=== PATIENT | male | born 1985 | race American Indian/Alaskan Native ===

== ENCOUNTER 2020-04-04 17:30 | Emergency (ER) | payer SELFPAY ==
[2020-04-04 17:56] VITALS: BP 132/82
--- NOTE | 2020-04-04 20:50 | Emergency Department Report ---
ED General Adult HPI - General Chief complaint: Skin/Abscess/Foreign Body Stated complaint: KNOTS IN ARM Time Seen by Provider: 04/04/20 20:41 Source: patient Mode of arrival: Ambulatory Limitations: No Limitations - History of Present Illness Initial comments: Patient is a 34-year-old F Nepalese male who is presenting with 1 month of swelling to the bilateral biceps. States he feels the small knots underneath the skin along the veins. Patient states there is some tenderness. He denies any fevers chills cough cold congestion or abscesses in the axilla. - Related Data Previous Rx's Medication Instructions Recorded Last Taken Type Aspirin EC [Ecotrin] 325 mg PO QDAY #7 tablet. 04/04/20 Unknown Rx cephALEXin [Keflex] 500 mg PO Q6HR #20 capsule 04/04/20 Unknown Rx Allergies Allergy/AdvReac Type Severity Reaction Status Date / Time No Known Allergies Allergy Unverified 04/04/20 17:49 ED Review of Systems ROS: Stated complaint: KNOTS IN ARM Other details as noted in HPI Comment: All other systems reviewed and negative ED Past Medical Hx - Past Medical History Previous Medical History?: No - Surgical History Past Surgical History?: No - Social History Smoking Status: Former Smoker Substance Use Type: None - Medications Home Medications: Home Medications Medication Instructions Recorded Confirmed Last Taken Type Aspirin EC [Ecotrin] 325 mg PO QDAY #7 tablet. 04/04/20 Unknown Rx cephALEXin [Keflex] 500 mg PO Q6HR #20 capsule 04/04/20 Unknown Rx ED Physical Exam - General Limitations: No Limitations General appearance: alert, in no apparent distress - Head Head exam: Present: atraumatic, normocephalic - Eye Eye exam: Present: normal appearance - ENT ENT exam: Present: mucous membranes moist - Neck Neck exam: Present: normal inspection - Respiratory Respiratory exam: Present: normal lung sounds bilaterally. Absent: respiratory distress - Cardiovascular Cardiovascular Exam: Present: regular rate, normal rhythm. Absent: systolic murmur, diastolic murmur, rubs, gallop - GI/Abdominal GI/Abdominal exam: Present: soft, normal bowel sounds - Rectal Rectal exam: Present: deferred - Extremities Exam Extremities exam: Present: normal inspection, other (In the bilateral biceps mostly medial the patient has clusters of small nodular lymph node sized lesions underneath the skin. He is a mobile. There are running in a chain. There is no swelling or abscess in the axilla. There is no overlying erythema or induration of the skin.) - Back Exam Back exam: Present: normal inspection - Neurological Exam Neurological exam: Present: alert, oriented X3 - Psychiatric Psychiatric exam: Present: normal affect, normal mood - Skin Skin exam: Present: warm, dry, intact, normal color. Absent: rash ED Course Vital Signs 04/04/20 04/04/20 17:52 17:53 Temperature 98.2 F 98.2 F Pulse Rate 67 64 Respiratory 18 18 Rate Blood Pressure 132/82 132/82 O2 Sat by Pulse 99 100 Oximetry ED Medical Decision Making - Medical Decision Making Differential includes lymphadenopathy versus thrombophlebitis. Because of the widespread nature leaning more towards these being lymph nodes. Patient is to be started on aspirin therapy as well as Keflex and will be given follow with primary care for further management. Critical care attestation.: If time is entered above; I have spent that time in minutes in the direct care of this critically ill patient, excluding procedure time. ED Disposition Clinical Impression: Lymphadenitis Disposition: DC-01 TO HOME OR SELFCARE Is pt being admited?: No Does the pt Need Aspirin: No Condition: Stable Instructions: Lymphangitis, Adult Referrals: BERNABE NGUYEN MD [Staff Physician] - 3-5 Days Time of Disposition: 20:46
== END 2020-04-04 20:58 | disposition home or self-care (01) ==
LOC: ED 17:30
DX: I88.8 Other nonspecific lymphadenitis (principal)
CPT/HCPCS: 99282

== ENCOUNTER 2020-04-24 09:55 | Emergency (ER) | payer OTHER ==
[2020-04-24 10:07] VITALS: BP 124/72
--- NOTE | 2020-04-24 12:34 | Emergency Department Report ---
ED Upper Extremity Inj HPI - General Chief Complaint: Extremity Injury, Upper Stated Complaint: RT ARM PAIN Time Seen by Provider: 04/24/20 10:54 Source: patient Mode of arrival: Ambulatory Limitations: No Limitations - History of Present Illness Initial Comments: This is a 34-year-old male nontoxic, well nourished in appearance, no acute signs of distress presents to the ED with c/o of bilateral bicep lumps with right worse then left x1 month. Patient was seen by provider on 04/04/2020 in the ED and was DX with possible lymphadenopathy. Patient denies any injuiries or trauma. Patient denies following up with PCP. Patient denies any numbness, ti ngling, fever, chills, nausea, vomiting, chest pain, shortness of breath, headache, stiff neck. Patient denies any joint swelling or joint redness. Patient denies decreased range of motion. Patient denies any allergies or significant past medical history. MD Complaint: Injury to:: right, arm Other Extremity Injury: Arm: Left, Right Severity scale (0 -10): 8 Improves With: none Worsens With: none Associated Symptoms: denies other symptoms. denies: weakness, numbness, neck pain, suspects foreign body, nausea/vomiting, heard/felt popping sensat - Related Data Previous Rx's Medication Instructions Recorded Last Taken Type Aspirin EC [Ecotrin] 325 mg PO QDAY #7 tablet. 04/04/20 Unknown Rx cephALEXin [Keflex] 500 mg PO Q6HR #20 capsule 04/04/20 Unknown Rx Allergies Allergy/AdvReac Type Severity Reaction Status Date / Time No Known Allergies Allergy Unverified 04/04/20 17:49 ED Review of Systems ROS: Stated complaint: RT ARM PAIN Other details as noted in HPI Constitutional: denies: chills, fever Eyes: denies: eye pain, eye discharge, vision change ENT: denies: ear pain, throat pain Respiratory: denies: cough, shortness of breath, wheezing Cardiovascular: denies: chest pain, palpitations Endocrine: no symptoms reported Gastrointestinal: denies: abdominal pain, nausea, diarrhea Genitourinary: denies: urgency, dysuria Musculoskeletal: denies: back pain, joint swelling, arthralgia Skin: denies: rash, lesions Neurological: denies: headache, weakness, paresthesias Psychiatric: denies: anxiety, depression Hematological/Lymphatic: denies: easy bleeding, easy bruising ED Past Medical Hx - Past Medical History Previous Medical History?: Yes Additional medical history: right arm with knots - Surgical History Past Surgical History?: No - Social History Smoking Status: Never Smoker Substance Use Type: None - Medications Home Medications: Home Medications Medication Instructions Recorded Confirmed Last Taken Type Aspirin EC [Ecotrin] 325 mg PO QDAY #7 tablet.dr 04/04/20 Unknown Rx cephALEXin [Keflex] 500 mg PO Q6HR #20 capsule 04/04/20 Unknown Rx ED Physical Exam - General Limitations: No Limitations General appearance: alert, in no apparent distress - Head Head exam: Present: atraumatic, normocephalic - Eye Eye exam: Present: normal appearance - Neck Neck exam: Present: normal inspection, full ROM - Respiratory Respiratory exam: Present: normal lung sounds bilaterally. Absent: respiratory distress, wheezes, rales, rhonchi, stridor, chest wall tenderness, accessory muscle use, decreased breath sounds, prolonged expiratory - Cardiovascular Cardiovascular Exam: Present: regular rate, normal rhythm, normal heart sounds. Absent: bradycardia, tachycardia, irregular rhythm, systolic murmur, diastolic murmur, rubs, gallop - Extremities Exam Extremities exam: Present: normal inspection, full ROM, normal capillary refill, other (small lumps noted that are mobile with no tenderness to biceps area. Neurovascular within normal limits). Absent: tenderness, joint swelling, calf tenderness - Back Exam Back exam: Present: normal inspection - Neurological Exam Neurological exam: Present: alert, oriented X3, normal gait - Psychiatric Psychiatric exam: Present: normal affect, normal mood - Skin Skin exam: Present: warm, dry, intact, normal color. Absent: rash ED Course Vital Signs 04/24/20 10:04 Temperature 97.9 F Pulse Rate 74 Respiratory 18 Rate Blood Pressure 124/72 O2 Sat by Pulse 97 Oximetry - Reevaluation(s) Reevaluation #1: 04/24/20 12:52 Patient is speaking in full sentences with no signs of distress noted. - Consultations Consultation #1: 04/24/20 14:38 Patient has been consulted with Stacey Najera about patient history, physical exam, and labs and agrees to the discharge plan of care. ED Medical Decision Making - Lab Data Result diagrams: 04/24/20 13:55 04/24/20 13:55 Lab Results 04/24/20 04/24/20 04/24/20 Range/Units 13:55 13:55 14:00 WBC 2.7 L (4.5-11.0) K/mm3 RBC 4.93 (3.65-5.03) M/mm3 Hgb 14.7 (11.8-15.2) gm/dl Hct 43.2 (35.5-45.6) % MCV 88 (84-94) fl MCH 30 (28-32) pg MCHC 34 (32-34) % RDW 13.9 (13.2-15.2) % Plt Count 139 L (140-440) K/mm3 Lymph % (Auto) 47.3 H (13.4-35.0) % Kane % (Auto) 15.8 H (0.0-7.3) % Eos % (Auto) 1.9 (0.0-4.3) % Baso % (Auto) 0.8 (0.0-1.8) % Lymph # (Auto) 1.3 (1.2-5.4) K/mm3 Kane # (Auto) 0.4 (0.0-0.8) K/mm3 Eos # (Auto) 0.1 (0.0-0.4) K/mm3 Baso # (Auto) 0.0 (0.0-0.1) K/mm3 Add Manual Diff Complete Seg Neutrophils % 34.2 L (40.0-70.0) % Seg Neutrophils # 0.9 L (1.8-7.7) K/mm3 Sodium 137 (137-145) mmol/L Potassium 4.6 (3.6-5.0) mmol/L Chloride 103.2 (98-107) mmol/L Carbon Dioxide 30 (22-30) mmol/L Anion Gap 8 mmol/L BUN 15 (9-20) mg/dL Creatinine 1.0 (0.8-1.3) mg/dL Estimated GFR > 60 ml/min BUN/Creatinine Ratio 15 % Glucose 85 (75-100) mg/dL Calcium 9.2 (8.4-10.2) mg/dL Total Bilirubin 0.30 (0.1-1.2) mg/dL AST 30 (5-40) units/L ALT 27 (7-56) units/L Alkaline Phosphatase 73 (35-129) units/L C-Reactive Protein (0.00-1.30) mg/dL Total Protein 6.9 (6.3-8.2) g/dL Albumin 3.8 L (3.9-5) g/dL Albumin/Globulin Ratio 1.2 % Monoscreen Negative (Negative) 04/24/ Range/Units 14:00 WBC (4.5-11.0) K/mm3 RBC (3.65-5.03) M/mm3 Hgb (11.8-15.2) gm/dl Hct (35.5-45.6) % MCV (84-94) fl MCH (28-32) pg MCHC (32-34) % RDW (13.2-15.2) % Plt Count (140-440) K/mm3 Lymph % (Auto) (13.4-35.0) % Kane % (Auto) (0.0-7.3) % Eos % (Auto) (0.0-4.3) % Baso % (Auto) (0.0-1.8) % Lymph # (Auto) (1.2-5.4) K/mm3 Kane # (Auto) (0.0-0.8) K/mm3 Eos # (Auto) (0.0-0.4) K/mm3 Baso # (Auto) (0.0-0.1) K/mm3 Add Manual Diff Seg Neutrophils % (40.0-70.0) % Seg Neutrophils # (1.8-7.7) K/mm3 Sodium (137-145) mmol/L Potassium (3.6-5.0) mmol/L Chloride (98-107) mmol/L Carbon Dioxide (22-30) mmol/L Anion Gap mmol/L BUN (9-20) mg/dL Creatinine (0.8-1.3) mg/dL Estimated GFR ml/min BUN/Creatinine Ratio % Glucose (75-100) mg/dL Calcium (8.4-10.2) mg/dL Total Bilirubin (0.1-1.2) mg/dL AST (5-40) units/L ALT (7-56) units/L Alkaline Phosphatase (35-129) units/L C-Reactive Protein 0.10 (0.00-1.30) mg/dL Total Protein (6.3-8.2) g/dL Albumin (3.9-5) g/dL Albumin/Globulin Ratio % Monoscreen (Negative) - Radiology Data Referring Physician: YASMIN PINTO Patient Name: JESSICA HOWELL Date of : 1985 Sex: Male Report Date: 2020-04-24 Report Status: [place] [address] Vascular Lab Report Signed Patient: JESSICA HOWELL JR MR#: [id number] : 1985 Acct:[id number] Age/Sex: 34 / M ADM Date: 04/24/20 Loc: ED Attending Dr: Ordering Physician: YASMIN PINTO NP Date of Service: 04/24/20 Procedure(s): VL venous duplex UE RT Accession Number(s): [id number] cc: YASMIN PINTO NP DUPLEX DOPPLER UPPER EXTREMITY VENOUS, RIGHT INDICATION / CLINICAL INFORMATION: Right arm pain. Right upper arm lump. TECHNIQUE: Duplex doppler imaging was performed through the veins of the right upper extremity using venous compression and other maneuvers. COMPARISON: None available. FINDINGS: RIGHT INTERNAL JUGULAR VEIN: Negative. RIGHT SUBCLAVIAN VEIN: Negative. RIGHT AXILLARY VEIN: Negative. RIGHT BRACHIAL VEIN: Negative. RIGHT FOREARM VEINS: Negative. RIGHT BASILIC VEIN (SUPERFICIAL): Negative. ADDITIONAL FINDINGS: There are are several small adjacent similar-appearing ovoid hypoechoic nodules in the subcutaneous tissue of the right upper arm at the site of palpable findings. The largest abnormality measures approximately 11 mm. The lesions are solid or complex cystic and demonstrates no internal blood flow on Doppler exam. IMPRESSION: 1. No sonographic evidence for DVT. 2. Several adjacent nonspecific hypoechoic lesions in the subcutaneous tissues of the right upper arm at the site of the palpable abnormality. Signer Name: Jon Bhatti MD Signed: 04/24/2020 1:02 PM Workstation Name: [id number] Transcribed By: RT Dictated By: Jon Bhatti MD Electronically Authenticated By: Jon Bhatti MD Signed Date/Time: 04/24/20 1302 DD/ 1258 TD/TT: - Medical Decision Making 34-year-old male that presents with lymphadenitis. Patient is stable and was examined by me. Patient is notified of the Doppler results with no questions noted by the patient. Patient was instructed to follow-up with a primary care doctor in 3-5 days or if symptoms worsen and continue return to emergency room a s soon as possible. At time of discharge, the patient does not seem toxic or ill in appearance. No acute signs of distress noted. Patient agrees to discharge treatment plan of care. No further questions noted by the patient. Critical care attestation.: If time is entered above; I have spent that time in minutes in the direct care of this critically ill patient, excluding procedure time. ED Disposition Clinical Impression: Lymphadenitis Neutropenia Qualifiers: Neutropenia type: unspecified Qualified Code(s): D70.9 - Neutropenia, unspecified Disposition: DC-01 TO HOME OR SELFCARE Is pt being admited?: No Does the pt Need Aspirin: No Condition: Stable Additional Instructions: Follow-up with a primary care doctor in 3-5 days or if symptoms worsen and continue return to emergency room as soon as possible. Referrals: ADITI KAUFFMAN MD [Primary Care Provider] - 3-5 Days BERNABE NGUYEN MD [Staff Physician] - 3-5 Days [facility] [Provider Group] - 3-5 Days Time of Disposition: 15:09
--- NOTE | 2020-04-24 13:06 | Vascular Lab Report ---
DUPLEX DOPPLER UPPER EXTREMITY VENOUS, RIGHT INDICATION / CLINICAL INFORMATION: Right arm pain. Right upper arm lump. TECHNIQUE: Duplex doppler imaging was performed through the veins of the right upper extremity using venous comp ression and other maneuvers. COMPARISON: None available. FINDINGS: RIGHT INTERNAL JUGULAR VEIN: Negative. RIGHT SUBCLAVIAN VEIN: Negative. RIGHT AXILLARY VEIN: Negative. RIGHT BRACHIAL VEIN: Negative. RIGHT FOREARM VEINS: Negative. RIGHT BASILIC VEIN (SUPERFICIAL): Negative. ADDITIONAL FINDINGS: There are are several small adjacent similar-appearing ovoid hypoechoic nodules in the subcutaneous tissue of the right upper arm at the site of palpable findings. The largest abnor mality measures approximately 11 mm. The lesions are solid or complex cystic and demonstrates no inte rnal blood flow on Doppler exam. IMPRESSION: 1. No sonographic evidence for DVT. 2. Several adjacent nonspecific hypoechoic lesions in the subcutaneous tissues of the right upper arm at the site of the palpable abnormality. Signer Name: Jon Bhatti MD Signed: 04/24/2020 1:02 PM Workstation Name: [id number]
[2020-04-24 14:29] LABS: Eosinophils # (Auto) 0.1 K/mm3 (0.0-0.4); Eosinophils % (Auto) 1.9 % (0.0-4.3); Monocytes % (Auto) 15.8 % (0.0-7.3)
[2020-04-24 14:30] LABS: Alanine Aminotransferase 27 units/L (7-56); Albumin 3.8 g/dL (3.9-5); BUN/Creatinine Ratio 15; Blood Urea Nitrogen 15 mg/dL (9-20); Calcium 9.2 mg/dL (8.4-10.2); Hemolysis Index 1
[2020-04-24 14:34] LABS: Basophils % (Auto) 0.8 % (0.0-1.8); Hematocrit 43.2 % (35.5-45.6); Hemoglobin 14.7 gm/dl (11.8-15.2); Lymphocytes # (Auto) 1.3 K/mm3 (1.2-5.4); Lymphocytes % (Auto) 47.3 % (13.4-35.0); Mean Corpuscular HGB Conc 34 % (32-34); Mean Corpuscular Volume 88 fl (84-94); Monocytes # (Auto) 0.4 K/mm3 (0.0-0.8); Platelet Count 139 K/mm3 (140-440); Red Blood Count 4.93 M/mm3 (3.65-5.03); Red Cell Distribution Width 13.9 % (13.2-15.2)
== END 2020-04-24 16:31 | disposition home or self-care (01) ==
LOC: ED 09:55
DX: I88.9 Nonspecific lymphadenitis, unspecified (principal); D70.9 Neutropenia, unspecified; Z79.82 Long term (current) use of aspirin; Z79.899 Other long term (current) drug therapy
CPT/HCPCS: 36415; 80053; 85025; 86140; 86308

== ENCOUNTER 2020-08-30 12:23 | Emergency (ER) | payer SELFPAY ==
[2020-08-30 14:12] VITALS: BP 144/97
--- NOTE | 2020-08-30 14:55 | Emergency Department Report ---
ED General Adult HPI - General Chief complaint: Urogenital-Male Stated complaint: BACK/ RACHEL SIDE PAIN Time Seen by Provider: 08/30/20 14:13 Source: patient Mode of arrival: Ambulatory Limitations: No Limitations - History of Present Illness Initial comments: 35-year-old male patient presents to emergency department with complaints of nontraumatic bilateral lower back pain for 3 months. Patient states the pain has been progressively worsening for 1 week. The pain is slightly worse on the right side. Took Tylenol with limited relief. He is not under the care of a primary care provider. Denies fever, chills, nausea, vomiting, diarrhea, constipation, rash, saddle anesthesia, bladder/bowel incontinence, urinary retention. Denies other complaints at this time. - Related Data Previous Rx's Medication Instructions Recorded Last Taken Type Aspirin EC [Ecotrin] 325 mg PO QDAY #7 tablet.dr 04/04/20 Unknown Rx cephALEXin [Keflex] 500 mg PO Q6HR #20 capsule 04/04/20 Unknown Rx Lidocaine [Lidoderm] 1 each TP BID #20 adh..patch 08/30/20 Unknown Rx Naproxen 500 mg PO BID #20 tablet 08/30/20 Unknown Rx Allergies Allergy/AdvReac Type Severity Reaction Status Date / Time No Known Allergies Allergy Unverified 04/04/20 17:49 ED Review of Systems ROS: Stated complaint: BACK/ RACHEL SIDE PAIN Other details as noted in HPI Other: GENERAL: Negative for fever, chills, weight change, anorexia, fatigue. ENT: Negative for ear pain, difficulty hearing, sore throat, nasal congestion, epistaxis. CARDIOVASCULAR: Negative for chest pain, palpitations, lower extremity swelling. PULMONARY: Negative for cough, dyspnea, wheezing, orthopnea, cyanosis. GASTROINTESTINAL: Negative for abdominal pain, nausea, vomiting, diarrhea. MUSCULOSKELETAL: Positive for back pain. NEUROLOGICAL: Negative for headache, seizure, syncope, paresthesias, weakness. INTEGUMENTARY: Negative for erythema, rash, diaphoresis, laceration, ecchymosis. HEMATOLOGICAL: Negative for hemoptysis, hematemesis, hematochezia, hematuria. PSYCHIATRIC: Negative for hallucinations, suicidal ideation, homicidal ideation, anxiety, depression. ED Past Medical Hx - Past Medical History Additional medical history: right arm with knots - Social History Smoking Status: Never Smoker Substance Use Type: None - Medications Home Medications: Home Medications Medication Instructions Recorded Confirmed Last Taken Type Aspirin EC [Ecotrin] 325 mg PO QDAY #7 tablet.dr 04/04/20 Unknown Rx cephALEXin [Keflex] 500 mg PO Q6HR #20 capsule 04/04/20 Unknown Rx Lidocaine [Lidoderm] 1 each TP BID #20 adh..patch 08/30/20 Unknown Rx Naproxen 500 mg PO BID #20 tablet 08/30/20 Unknown Rx ED Physical Exam - General Limitations: No Limitations - Other Other exam information: General: Awake and alert. No acute distress. Head: Atraumatic, normocephalic. Eyes: EOMI. Pupils are equal and round. Normal sclera and conjunctiva. ENT: Oral mucosa is moist. Normal pharyngeal exam. Neck: Supple. No lymphadenopathy. Pulmonary: No respiratory distress. Clear to auscultation bilaterally. Cardiac: Regular rate and rhythm. Pulses are palpable and equal bilaterally. No lower extremity cyanosis or edema. Skin: Warm and dry. No rashes. Abdomen: Soft, non-tender, non-protuberant. No guarding, rigidity, or rebound. Bowel sounds are normal. No organomegaly or masses noted. Back: Normal alignment. No midline tenderness. No step-offs. Bilateral paraspinal thoracic and midline tenderness, right > left. No overlying skin changes. No palpable muscle spasm. Pain is reproducible with movement and palpation. Extremities: Symmetrical. Full range of motion intact. Neurological: Alert and oriented, appropriately interactive, no focal deficits. Psych: Cooperative. Appropriate mood and affect. Speech is evenly metered. Thoughts are logically construed. ED Course Vital Signs 08/30/20 14:11 Temperature 98.7 F Pulse Rate 67 Respiratory 18 Rate Blood Pressure 144/97 O2 Sat by Pulse 98 Oximetry ED Medical Decision Making - Medical Decision Making Differential diagnosis including but not limited to: sprain, strain, contusion, pyelonephritis, nephrolithiasis, urinary tract infection On reevaluation, patient is stable and symptoms have improved after pain medication. He is afebrile, hemodynamically stable, neurovascularly intact, ambulatory without assistance. No preceding trauma. Urinalysis is unremarkable. History and exam findings suggestive of musculoskeletal pain; no clinical indication for further diagnostic work-up on an emergent basis at this time. Patient will be discharged home with appropriate analgesics and referred to primary care provider for close outpatient follow-up. Patient expressed understanding and is agreeable to plan of care. Strict return precautions provided. Repeat exam is unremarkable and benign. History, exam, diagnostic testing, and current condition do not suggest worrisome pathology to warrant further testing, continued ED treatment, admission, or surgical evaluation at this point. Given the low probability of a significant medical illness, it would be more likely to result in harm than benefit to perform further testing at this stage. Discussed findings, presumptive diagnosis, need for follow-up and specific signs/symptoms that should prompt immediate return to the emergency department. Instructions were explained in detail to the patient in addition to giving written discharge information. Patient expressed understanding and was given the opportunity to ask questions, all of which were satisfactorily answered prior to discharge home. Critical care attestation.: If time is entered above; I have spent that time in minutes in the direct care of this critically ill patient, excluding procedure time. ED Disposition Clinical Impression: Acute exacerbation of chronic low back pain Disposition: TO HOME OR SELFCARE Is pt being admited?: No Does the pt Need Aspirin: No Condition: Stable Instructions: Chronic Back Pain Additional Instructions: Take Tylenol every 4 hours as needed for pain. Take Naprosyn twice daily with food as needed for pain. Apply Lidoderm patches to affected area as needed for pain. Apply heat to affected area as needed for pain. Gradually advance physical activity slowly as tolerated. Follow-up with Dr. Piedra, primary care provider, within 1 week. Call tomorrow to schedule an appointment. Return to the emergency department immediately for new or worsening symptoms. Prescriptions: Lidocaine [Lidoderm] 1 each TP BID #20 adh..patch Naproxen 500 mg PO BID #20 tablet Referrals: BERNABE PIEDRA MD [Staff Physician] - 3-5 Days [facility] [Outside] - 3-5 Days [facility] [Outside] - 3-5 Days [facility] [Outside] - 3-5 Days Time of Disposition: 16:02
[2020-08-30 15:43] LABS: Bilirubin,Urine NEG (Negative); Blood,Urine NEG (Negative); Color,Urine Yellow (Yellow); Protein,Urine <15 mg/dL mg/dL (Negative); Urobilinogen,Urine < 2.0 mg/dL (<2.0); WBC,Urine < 1.0 /HPF (0.0-6.0)
[2020-08-30] MEDS ORDERED: KETOROLAC 30 MG/1 ML INJ IM ONE (16:01)
== END 2020-08-30 16:13 | disposition home or self-care (01) ==
LOC: ED 12:23
DX: M54.5 Low back pain (principal); G89.29 Other chronic pain; Z79.899 Other long term (current) drug therapy; Z98.890 Other specified postprocedural states
CPT/HCPCS: 81001; 96372; 99283; J1885

== ENCOUNTER 2020-09-13 00:02 | Emergency (ER) | payer SELFPAY ==
[2020-09-13 01:11] VITALS: BP 133/93
[2020-09-13 02:11] LABS: Bacteria,Urine 1+ /HPF (Negative); Bilirubin,Urine NEG (Negative); Blood,Urine SM (Negative); Color,Urine Yellow (Yellow); Protein,Urine <15 mg/dL mg/dL (Negative); WBC,Urine < 1.0 /HPF (0.0-6.0)
[2020-09-13] MEDS ORDERED: predniSONE 20 MG TAB PO ONE (07:38)
[2020-09-13] MEDS ORDERED: KETOROLAC 60 MG/2 ML INJ IM ONE (07:38)
--- NOTE | 2020-09-13 08:39 | Cat Scan Report ---
CT ABDOMEN AND PELVIS WITHOUT CONTRAST INDICATION / CLINICAL INFORMATION: flank pain. TECHNIQUE: Axial CT images were obtained through the abdomen and pelvis without IV contrast. All CT scans at [facility] location are performed using CT dose reduction for ALARA by means of automated exposure control. COMPARISON: None available. FINDINGS: LOWER CHEST: No significant abnormality. LIVER: No significant abnormality. GALLBLADDER: No significant abnormality. BILE DUCTS: No significant abnormality. PANCREAS: No significant abnormality. SPLEEN: No significant abnormality. ADRENALS: No significant abnormality. RIGHT KIDNEY / URETER: No significant abnormality. LEFT KIDNEY / URETER: 9 mm nonobstructive calcified stone in the left pelvicalyceal system. No hydron ephrosis. No evidence of ureteral stone burden. STOMACH / SMALL BOWEL: No significant abnormality. COLON: Abundant colonic stool burden. Correlate for signs and symptoms of constipation. No inflammato ry changes are noted. APPENDIX: No significant abnormality. PERITONEUM: No free fluid. No free air. No fluid collection. LYMPH NODES: No significant adenopathy. AORTA / ARTERIES: No significant abnormality. IVC / VEINS: No significant abnormality. URINARY BLADDER: No significant abnormality. No calcified stone burden. REPRODUCTIVE ORGANS: No significant abnormality. ADDITIONAL FINDINGS: None. SKELETAL SYSTEM: No significant abnormality. No aggressive osseous lesions. IMPRESSION: 1. 9 mm nonobstructive calcified stone in the left pelvicalyceal system without evidence of hydroneph rosis. 2. No additional stone burden or hydronephrosis. 3. Abundant colonic stool burden. Correlate for signs and symptoms of constipation. Signer Name: Rodriguez Lara MD Signed: 09/13/2020 8:35 AM Workstation Name: [id number]
--- NOTE | 2020-09-13 08:51 | Emergency Department Report ---
ED Abdominal Pain HPI - General Chief Complaint: Back Pain/Injury Stated Complaint: LOWER BACK PAIN Time Seen by Provider: 09/13/20 07:33 Source: patient Mode of arrival: Ambulatory Limitations: No Limitations - History of Present Illness Initial Comments: This is a 35-year-old male nontoxic, well nourished in appearance, no acute signs of distress presents to the ED with c/o of left flank and lower back pain intermittent x several days. Denies any radiation of pain. Patient denies any trauma. Denies any bladder or bowel instability. Patient denies any urinary symptoms. Denies any fever, chills, nausea, vomiting, headache, stiff neck, chest pain or shortness of breath. Patient denies any numbness or tingling. Denies any allergies. Denies significant past medical history. MD Complaint: flank pain -: days(s) Location: L flank Radiation: none Migration to: no migration Severity: mild Severity scale (0 -10): 8 Quality: aching Consistency: intermittent Improves With: movement Worsens With: rest Associated Symptoms: denies other symptoms. denies: nausea, vomiting, diarrhea, fever, chills, constipation, dysuria, hematemesis, hematochezia, melena, hematuria, anorexia, syncope - Related Data Previous Rx's Medication Instructions Recorded Last Taken Type Aspirin EC [Ecotrin] 325 mg PO QDAY #7 tablet.dr 04/04/20 Unknown Rx cephALEXin [Keflex] 500 mg PO Q6HR #20 capsule 04/04/20 Unknown Rx Lidocaine [Lidoderm] 1 each TP BID #20 adh..patch 08/30/20 Unknown Rx Naproxen 500 mg PO BID #20 tablet 08/30/20 Unknown Rx Cyclobenzaprine [Flexeril] 10 mg PO QHS PRN #10 tablet 09/13/20 Unknown Rx Ketorolac [Toradol] 10 mg PO Q12H PRN #12 tablet 09/13/20 Unknown Rx Allergies Allergy/AdvReac Type Severity Reaction Status Date / Time No Known Allergies Allergy Unverified 04/04/20 17:49 ED Review of Systems ROS: Stated complaint: LOWER BACK PAIN Other details as noted in HPI Comment: All other systems reviewed and negative Constitutional: denies: chills, fever Eyes: denies: eye pain, eye discharge, vision change ENT: denies: ear pain, throat pain Respiratory: denies: cough, shortness of breath, wheezing Cardiovascular: denies: chest pain, palpitations Endocrine: no symptoms reported Gastrointestinal: denies: abdominal pain, nausea, diarrhea Genitourinary: denies: urgency, dysuria Musculoskeletal: back pain. denies: joint swelling, arthralgia Skin: denies: rash, lesions Neurological: denies: headache, weakness, paresthesias Psychiatric: denies: anxiety, depression Hematological/Lymphatic: denies: easy bleeding, easy bruising ED Past Medical Hx - Past Medical History Previous Medical History?: Yes Additional medical history: right arm with knots - Surgical History Past Surgical History?: No - Social History Smoking Status: Never Smoker Substance Use Type: None - Medications Home Medications: Home Medications Medication Instructions Recorded Confirmed Last Taken Type Aspirin EC [Ecotrin] 325 mg PO QDAY #7 tablet.dr 04/04/20 Unknown Rx cephALEXin [Keflex] 500 mg PO Q6HR #20 capsule 04/04/20 Unknown Rx Lidocaine [Lidoderm] 1 each TP BID #20 adh..patch 08/30/20 Unknown Rx Naproxen 500 mg PO BID #20 tablet 08/30/20 Unknown Rx Cyclobenzaprine [Flexeril] 10 mg PO QHS PRN #10 tablet 09/13/20 Unknown Rx Ketorolac [Toradol] 10 mg PO Q12H PRN #12 tablet 09/13/20 Unknown Rx ED Physical Exam - General Limitations: No Limitations General appearance: alert, in no apparent distress - Head Head exam: Present: atraumatic, normocephalic - Eye Eye exam: Present: normal appearance - Neck Neck exam: Present: normal inspection, full ROM - Respiratory Respiratory exam: Present: normal lung sounds bilaterally. Absent: respiratory distress, wheezes, rales, rhonchi, stridor, chest wall tenderness, accessory muscle use, decreased breath sounds, prolonged expiratory - Cardiovascular Cardiovascular Exam: Present: regular rate, normal rhythm, normal heart sounds. Absent: bradycardia, tachycardia, irregular rhythm, systolic murmur, diastolic murmur, rubs, gallop - GI/Abdominal GI/Abdominal exam: Present: soft, normal bowel sounds. Absent: distended, tenderness, guarding, rebound, rigid, diminished bowel sounds - Extremities Exam Extremities exam: Present: normal inspection, full ROM - Back Exam Back exam: Present: normal inspection, full ROM, paraspinal tenderness (lumbar paraspinal). Absent: tenderness, CVA tenderness (R), CVA tenderness (L), muscle spasm, vertebral tenderness, rash noted - Expanded Back Exam Expanded Back exam: Absent: saddle anesthesia Back exam: Negative Straight Leg Raising: Right, Left - Neurological Exam Neurological exam: Present: alert, oriented X3, normal gait - Psychiatric Psychiatric exam: Present: normal affect, normal mood - Skin Skin exam: Present: warm, dry, intact, normal color. Absent: rash ED Course Vital Signs 09/13/20 00:59 Temperature 98.4 F Pulse Rate 70 Respiratory 18 Rate Blood Pressure 133/93 O2 Sat by Pulse 97 Oximetry - Reevaluation(s) Reevaluation #1: 09/13/20 08:52 Patient is speaking in full sentences with no signs of distress noted. ED Medical Decision Making - Lab Data Lab Results 09/13/20 Range/Units 00:48 Urine Color Yellow (Yellow) Urine Turbidity Clear (Clear) Urine pH 6.0 (5.0-7.0) Ur Specific Force 1.018 (1.003-1.030) Urine Protein <15 mg/dl (Negative) mg/dL Urine Glucose (UA) Neg (Negative) mg/dL Urine Ketones Neg (Negative) mg/dL Urine Blood Sm (Negative) Urine Nitrite Neg (Negative) Urine Bilirubin Neg (Negative) Urine Urobilinogen 2.0 (<2.0) mg/dL Ur Leukocyte Esterase Neg (Negative) Urine WBC (Auto) < 1.0 (0.0-6.0) /HPF Urine RBC (Auto) 13.0 (0.0-6.0) /HPF U Epithel Cells (Auto) < 1.0 (0-13.0) /HPF Urine Bacteria (Auto) 1+ (Negative) /HPF - Radiology Data [facility] [address] [place] [address] Cat Scan Report Signed Patient: JESSICA HOWELL JR MR#: [id number] : 1985 Acct:[id number] Age/Sex: 35 / M ADM Date: 09/13/20 Loc: ED Attending Dr: Ordering Physician: YASMIN PINTO NP Date of Service: 09/13/20 Procedure(s): CT abdomen pelvis wo con Accession Number(s): [id number] cc: YASMIN PINTO NP CT ABDOMEN AND PELVIS WITHOUT CONTRAST INDICATION / CLINICAL INFORMATION: flank pain. TECHNIQUE: Axial CT images were obtained through the abdomen and pelvis without IV contrast. All CT scans at this location are performed using CT dose reduction for ALARA by means of automated exposure control. COMPARISON: None available. FINDINGS: LOWER CHEST: No significant abnormality. LIVER: No significant abnormality. GALLBLADDER: No significant abnormality. BILE DUCTS: No significant abnormality. PANCREAS: No significant abnormality. SPLEEN: No significant abnormality. ADRENALS: No significant abnormality. RIGHT KIDNEY / URETER: No significant abnormality. LEFT KIDNEY / URETER: 9 mm nonobstructive calcified stone in the left pelvicalyceal system. No hydronephrosis. No evidence of ureteral stone burden. STOMACH / SMALL BOWEL: No significant abnormality. COLON: Abundant colonic stool burden. Correlate for signs and symptoms of constipation. No inflammatory changes are noted. APPENDIX: No significant abnormality. PERITONEUM: No free fluid. No free air. No fluid collection. LYMPH NODES: No significant adenopathy. AORTA / ARTERIES: No significant abnormality. IVC / VEINS: No significant abnormality. URINARY BLADDER: No significant abnormality. No calcified stone burden. REPRODUCTIVE ORGANS: No significant abnormality. ADDITIONAL FINDINGS: None. SKELETAL SYSTEM: No significant abnormality. No aggressive osseous lesions. IMPRESSION: 1. 9 mm nonobstructive calcified stone in the left pelvicalyceal system without evidence of hydronephrosis. 2. No additional stone burden or hydronephrosis. 3. Abundant colonic stool burden. Correlate for signs and symptoms of constipation. Signer Name: Rodriguez Coreas MD Signed: 09/13/2020 8:35 AM Workstation Name: [id number] Transcribed By: Dictated By: RODRIGUEZ COREAS Electronically Authenticated By: RODRIGUEZ COREAS Signed Date/Time: 09/13/20834 DD/ 9 TD/TT: - Medical Decision Making This is a 35-year-old male that presents with low back strain and left kidney stone. Patient is stable was examined by me. There is no spinal tenderness. There is no cauda equina syndrome during examination. No bladder or bowel instability. Patient received Toradol 60 mg IM and prednisone in the ED which stated that his his symptoms has resolved and subsided. Patient is discharged with muscle relaxant and Toradol. Patient was instructed not to operate any machinery while taking muscle relaxant as they cause her drowsiness. Patient was referred to Follow-up with a primary care doctor in 3-5 days or if symptoms worsen and continue return to emergency room as soon as possible. At time of discharge, the patient does not seem toxic or ill in appearance. No acute signs of distress noted. Patient agrees to discharge treatment plan of care. No further questions noted by the patient. This chart is dictated with using [employer] D[employer] Critical care attestation.: If time is entered above; I have spent that time in minutes in the direct care of this critically ill patient, excluding procedure time. ED Disposition Clinical Impression: Left renal stone Low back strain Qualifiers: Encounter type: initial encounter Qualified Code(s): S39.012A - Strain of muscle, fascia and tendon of lower back, initial encounter Disposition: TO HOME OR SELFCARE Is pt being admited?: No Does the pt Need Aspirin: No Condition: Stable Instructions: Lumbosacral Strain, Kidney Stones, Xdle-xo-Stor, Cyclobenzaprine tablets Additional Instructions: Follow-up with your primary care and urologist doctor in 3-5 days or if symptoms worsen such as bladder or bowel stability, chest pain, short of breath, numbness or tingling sensation in extremities, headache, dizziness, visual changes, nausea vomiting, or abdominal pain, return back to emergency room as was possible. Take Toradol and Flexeril as prescribed. Do not operate heavy machinery while taking Flexeril due to sedation Prescriptions: Cyclobenzaprine [Flexeril] 10 mg PO QHS PRN #10 tablet PRN Reason: Muscle Spasm Ketorolac [Toradol] 10 mg PO Q12H PRN #12 tablet PRN Reason: Pain Referrals: ADITI KAUFFMAN MD [Primary Care Provider] - 3-5 Days BERNABE NGUYEN MD [Staff Physician] - 3-5 Days Forms: Work/School Release Form(ED) Time of Disposition: 08:57
== END 2020-09-13 09:53 | disposition home or self-care (01) ==
LOC: ED 00:02
DX: S39.012A Strain of muscle, fascia and tendon of lower back, initial encounter (principal); N20.0 Calculus of kidney; Z79.899 Other long term (current) drug therapy; X58.XXXA Exposure to other specified factors, initial encounter; Y93.89 Activity, other specified; Y92.89 Other specified places as the place of occurrence of the external cause; Y99.8 Other external cause status
CPT/HCPCS: 74176; 81001; 96372; 99284; J1885; J7512

== ENCOUNTER 2021-02-02 20:31 | Emergency (ER) | payer SELFPAY ==
[2021-02-02 21:22] VITALS: BP 157/102
--- NOTE | 2021-02-02 21:30 | Emergency Department Report ---
ED Upper Extremity Inj HPI - General Chief Complaint: Shoulder Injury Stated Complaint: LOWER BACK PAIN Source: patient Mode of arrival: Ambulatory Limitations: No Limitations - History of Present Illness Initial Comments: Patient is a 35-year-old -[place]kin[place] male with a history of chronic low back pain who presents to the ED with complaint of acute exacerbation of his chr onic low back pain and acute onset severe left shoulder pain after heavy lifting at work 2 days ago. Patient states that his symptoms have worsened in the last 12 hours such that he was unable even to work or lift anything at work in the last 8 hours. Patient denies fall, chest pain, shortness of breath, dizziness, syncope, nausea, vomiting, numbness and tingling or weakness of upper and lower extremities bilaterally, change in vision, fall, hematuria, dysuria or testicular pain. MD Complaint: Injury to:: left (Left shoulder pain), shoulder (Left shoulder pain and chronic back pain) -: Sudden, days(s) (2) Other Extremity Injury: Shoulder: Left (Left shoulder pain) Other Injuries: none Handedness: right Place: work Severity scale (0 -10): 8 Improves With: immobilization, movement Worsens With: movement of extremity Context: injury (Heavy lifting at work) Associated Symptoms: denies other symptoms. denies: weakness, numbness, neck pain, suspects foreign body, nausea/vomiting, other - Related Data Previous Rx's Medication Instructions Recorded Last Taken Type Tramadol HCl/Acetaminophen 1 each PO Q6HR PRN #15 tablet 09/29/20 Unknown Rx [Ultracet Tablet] amLODIPine 5 mg PO DAILY #30 tab 09/29/20 Unknown Rx methylPREDNISolone [Medrol 4MG 4 mg PO DAILY #1 tab.ds.pk 09/29/20 Unknown Rx DOSEPAK (21 tabs)] Baclofen 20 mg PO Q8H PRN #30 tablet 02/02/21 Unknown Rx Ibuprofen [Motrin] 800 mg PO Q8HR PRN #30 tablet 02/02/21 Unknown Rx predniSONE [Deltasone] 20 mg PO QDAY #15 tab 02/02/21 Unknown Rx Allergies Allergy/AdvReac Type Severity Reaction Status Date / Time No Known Allergies Allergy Unverified 04/04/20 17:49 ED Review of Systems ROS: Stated complaint: LOWER BACK PAIN Other details as noted in HPI Constitutional: denies: chills, fever Eyes: denies: eye pain, eye discharge, vision change ENT: denies: ear pain, throat pain Respiratory: denies: cough, shortness of breath, wheezing Cardiovascular: denies: chest pain, palpitations Endocrine: no symptoms reported Gastrointestinal: denies: abdominal pain, nausea, diarrhea Genitourinary: denies: urgency, dysuria Musculoskeletal: back pain (Low back pain), arthralgia (Left shoulder pain). denies: joint swelling, myalgia Skin: denies: rash, lesions Neurological: denies: headache, weakness, paresthesias Psychiatric: denies: anxiety, depression Hematological/Lymphatic: denies: easy bleeding, easy bruising ED Past Medical Hx - Past Medical History Previous Medical History?: Yes Hx Hypertension: Yes Additional medical history: right arm with knots - Surgical History Past Surgical History?: No - Social History Smoking Status: Never Smoker - Medications Home Medications: Home Medications Medication Instructions Recorded Confirmed Last Taken Type Tramadol HCl/Acetaminophen 1 each PO Q6HR PRN #15 tablet 09/29/20 Unknown Rx [Ultracet Tablet] amLODIPine 5 mg PO DAILY #30 tab 09/29/20 Unknown Rx methylPREDNISolone [Medrol 4MG 4 mg PO DAILY #1 tab.ds.pk 09/29/20 Unknown Rx DOSEPAK (21 tabs)] Baclofen 20 mg PO Q8H PRN #30 tablet 02/02/21 Unknown Rx Ibuprofen [Motrin] 800 mg PO Q8HR PRN #30 tablet 02/02/21 Unknown Rx predniSONE [Deltasone] 20 mg PO QDAY #15 tab 02/02/21 Unknown Rx ED Physical Exam - General Limitations: No Limitations General appearance: alert, in no apparent distress - Head Head exam: Present: atraumatic, normocephalic, normal inspection - Eye Eye exam: Present: normal appearance, PERRL, EOMI Pupils: Present: normal accommodation - ENT ENT exam: Present: normal exam, normal orophraynx, mucous membranes moist, TM's normal bilaterally, normal external ear exam - Neck Neck exam: Present: normal inspection, full ROM. Absent: tenderness, meningismus - Respiratory Respiratory exam: Present: normal lung sounds bilaterally. Absent: respiratory distress, wheezes, rales, rhonchi, chest wall tenderness, accessory muscle use, decreased breath sounds, prolonged expiratory - Cardiovascular Cardiovascular Exam: Present: regular rate, normal rhythm, normal heart sounds. Absent: systolic murmur, diastolic murmur, rubs, gallop - GI/Abdominal GI/Abdominal exam: Present: soft, normal bowel sounds. Absent: tenderness, guarding, rebound, hyperactive bowel sounds, hypoactive bowel sounds, organomegaly, bruit - Extremities Exam Extremities exam: Present: normal inspection, full ROM, tenderness (Palpable left shoulder tenderness), normal capillary refill - Back Exam Back exam: Present: normal inspection, full ROM, tenderness, muscle spasm, paraspinal tenderness. Absent: CVA tenderness (L), vertebral tenderness - Neurological Exam Neurological exam: Present: alert, oriented X3, CN II-XII intact, normal gait, reflexes normal - Psychiatric Psychiatric exam: Present: normal affect, normal mood - Skin Skin exam: Present: warm, dry, intact, normal color. Absent: rash ED Course Vital Signs 02/02/21 21:19 Temperature 98.9 F Pulse Rate 80 Respiratory 18 Rate Blood Pressure 157/102 O2 Sat by Pulse 96 Oximetry ED Medical Decision Making - Radiology Data Radiology results: report reviewed, image reviewed - Medical Decision Making This is a 35-year-old -[place] male with a history of chronic low back pain who presents to the ED with complaint of acute exacerbation of his chronic low back pain and acute onset severe left shoulder pain after heavy lifting at work 2 days ago. Patient states that his symptoms have worsened in the last 12 hours such that he was unable even to work or lift anything at work in the last 8 hours. In the ED, patient is alert and oriented x3 and is not in any distress. Based on the history and physical exam findings, the patient will discharge home on pain medications and muscle relaxants and advised to follow-up with his primary care physician in 5 to 7 days for reevaluation or return to the ED immediately if symptoms get worse. - Differential Diagnosis Muscle spasm; muscle strain; shoulder sprain; shoulder tendinitis Critical care attestation.: If time is entered above; I have spent that time in minutes in the direct care of this critically ill patient, excluding procedure time. ED Disposition Clinical Impression: Tendinitis of left shoulder, Spasm of muscle of lower back Muscle strain of left shoulder Qualifiers: Encounter type: initial encounter Qualified Code(s): S46.912A - Strain of unspecified muscle, fascia and tendon at shoulder and upper arm level, left arm, initial encounter Chronic low back pain without sciatica Qualifiers: Back pain laterality: unspecified Qualified Code(s): M54.50 - Low back pain, unspecified; G89.29 - Other chronic pain Disposition: HOME / SELF CARE / HOMELESS Is pt being admited?: No Does the pt Need Aspirin: No Condition: Stable Instructions: Muscle Cramps and Spasms, [id number], Muscle Strain, [id number], Chronic Back Pain, [id number] Additional Instructions: Your symptoms are likely due to muscle strain of left shoulder following heavy lifting at work. Therefore take pain medication as needed with muscle relaxant and follow-up with your primary care physician in 7 to 10 days for reevaluation. Return to the ED immediately if symptoms get worse. Prescriptions: Baclofen 20 mg PO Q8H PRN #30 tablet PRN Reason: Muscle Spasm predniSONE [Deltasone] 20 mg PO QDAY #15 tab Ibuprofen [Motrin] 800 mg PO Q8HR PRN #30 tablet PRN Reason: Pain , Severe (7-10) Referrals: [facility] [Provider Group] - 3-5 Days Forms: Work/School Release Form(ED) Time of Disposition: 21:30 Print Language: STATELESS
== END 2021-02-02 22:54 | disposition home or self-care (01) ==
LOC: ED 20:31
DX: S46.912A Strain of unspecified muscle, fascia and tendon at shoulder and upper arm level, left arm, initial encounter (principal); M62.830 Muscle spasm of back; M54.50 Low back pain, unspecified; M77.8 Other enthesopathies, not elsewhere classified; I10 Essential (primary) hypertension; G89.29 Other chronic pain; Z79.899 Other long term (current) drug therapy; X50.0XXA Overexertion from strenuous movement or load, initial encounter; Y93.89 Activity, other specified; Y92.89 Other specified places as the place of occurrence of the external cause; Y99.8 Other external cause status
CPT/HCPCS: 99282

== ENCOUNTER 2021-02-04 11:33 | Emergency (ER) | payer SELFPAY ==
[2021-02-04 11:48] VITALS: BP 132/89
[2021-02-04] MEDS ORDERED: MORPHINE 4 MG/1 ML INJ IV ONE (12:18)
[2021-02-04] MEDS ORDERED: ONDANSETRON 4 MG/2 ML INJ IV ONE (12:18)
[2021-02-04] MEDS ORDERED: FAMOTIDINE 20 MG TAB PO ONE (12:19)
--- NOTE | 2021-02-04 12:20 | Emergency Department Report ---
ED Abdominal Pain HPI - General Chief Complaint: Abdominal Pain Stated Complaint: ABD PAIN Time Seen by Provider: 02/04/21 12:09 Source: patient Mode of arrival: Stretcher Limitations: No Limitations - History of Present Illness Initial Comments: 35 year old male with past medical hx of HTN but has been non compliant with his BP meds presents to ED with complaints of severe upper abdominal pain. Patient states pain started this morning while at work. He describes it as sharp and constant. He states its a 10/10 pain. He states pain radiated into chest. He reports no SOB or wheezing. He states that he vomited twice this morning with the pain. He reports no hematemesis or coffee ground emesis. He states he has hx of constipation, and he cannot remember the last time her had BM. He does not take anything for constipation. Patient states that prior to onset of the pain, he had taken an 800mg ibuprofen for his back pain on an empty stomach. He states he just recently got the prescription for the motrin and has only been taking it as needed. He states he drinks alcohol occasionally on weekends. He denies any illicit drug use. He admits to tobacco use. He denies any abd surgeries. MD Complaint: abdominal pain -: Sudden, This morning Severity scale (0 -10): 10 - Related Data Previous Rx's Medication Instructions Recorded Last Taken Type Tramadol HCl/Acetaminophen 1 each PO Q6HR PRN #15 tablet 09/29/20 Unknown Rx [Ultracet Tablet] amLODIPine 5 mg PO DAILY #30 tab 09/29/20 Unknown Rx methylPREDNISolone [Medrol 4MG 4 mg PO DAILY #1 tab.ds.pk 09/29/20 Unknown Rx DOSEPAK (21 tabs)] Baclofen 20 mg PO Q8H PRN #30 tablet 02/02/21 Unknown Rx Ibuprofen [Motrin] 800 mg PO Q8HR PRN #30 tablet 02/02/21 Unknown Rx predniSONE [Deltasone] 20 mg PO QDAY #15 tab 02/02/21 Unknown Rx Allergies Allergy/AdvReac Type Severity Reaction Status Date / Time No Known Allergies Allergy Unverified 04/04/20 17:49 ED Review of Systems ROS: Stated complaint: ABD PAIN Other details as noted in HPI Comment: All other systems reviewed and negative Constitutional: denies: chills, fever ENT: denies: ear pain, throat pain Respiratory: denies: cough, shortness of breath, wheezing Cardiovascular: denies: chest pain, palpitations Gastrointestinal: abdominal pain, nausea, vomiting, constipation Genitourinary: denies: urgency, dysuria, frequency, hematuria, discharge, testicular pain, testicular mass Musculoskeletal: denies: back pain, joint swelling, arthralgia Skin: denies: rash, lesions Neurological: denies: headache, weakness, numbness, paresthesias, confusion, abnormal gait Psychiatric: denies: anxiety, depression, auditory hallucinations, visual hallucinations, homicidal thoughts, suicidal thoughts Hematological/Lymphatic: denies: easy bleeding, easy bruising ED Past Medical Hx - Past Medical History Hx Hypertension: Yes Additional medical history: right arm with knots - Social History Smoking Status: Never Smoker - Medications Home Medications: Home Medications Medication Instructions Recorded Confirmed Last Taken Type Tramadol HCl/Acetaminophen 1 each PO Q6HR PRN #15 tablet 09/29/20 Unknown Rx [Ultracet Tablet] amLODIPine 5 mg PO DAILY #30 tab 09/29/20 Unknown Rx methylPREDNISolone [Medrol 4MG 4 mg PO DAILY #1 tab.ds.pk 09/29/20 Unknown Rx DOSEPAK (21 tabs)] Baclofen 20 mg PO Q8H PRN #30 tablet 02/02/21 Unknown Rx Ibuprofen [Motrin] 800 mg PO Q8HR PRN #30 tablet 02/02/21 Unknown Rx predniSONE [Deltasone] 20 mg PO QDAY #15 tab 02/02/21 Unknown Rx ED Physical Exam - General Limitations: No Limitations General appearance: alert, in no apparent distress - Head Head exam: Present: atraumatic, normocephalic, normal inspection - Eye Eye exam: Present: normal appearance, PERRL, EOMI Pupils: Present: normal accommodation - Neck Neck exam: Present: normal inspection, full ROM - Respiratory Respiratory exam: Present: normal lung sounds bilaterally. Absent: respiratory distress, wheezes, rales, rhonchi, stridor - Cardiovascular Cardiovascular Exam: Present: regular rate, normal rhythm, normal heart sounds - GI/Abdominal GI/Abdominal exam: Present: soft, tenderness (RUQ with mild guarding but no rebound or rigidity ). Absent: distended - Neurological Exam Neurological exam: Present: alert, oriented X3, CN II-XII intact, normal gait - Psychiatric Psychiatric exam: Present: normal affect, normal mood - Skin Skin exam: Present: intact ED Course Vital Signs 02/04/21 11:44 Temperature 97.8 F Pulse Rate 68 Blood Pressure 132/89 [Left] O2 Sat by Pulse 96 Oximetry ED Medical Decision Making - Lab Data Result diagrams: 02/04/21 12:22 02/04/21 12:22 - EKG Data Rate: normal No standard instances Rhythm: arrhythmia (non specific) - EKG Data Interpretation: no acute changes - Medical Decision Making 1403: Patient wanted discharge instructions so that he could leave. Informed patient that we are still waiting for results of his lab test, and he also has not gotten the CT of his abdomen pelvis is yet. Informed him that he will if he will need to leave, he will need to sign out AGAINST MEDICAL ADVICE. Patient initially expressed understanding and was willing to wait but, apparently when it came time to start IV for patient to get meds, IV fluids and to be taken to CT, patient was noted to be found. Patient apparently eloped without notifying staff or myself. Critical care attestation.: If time is entered above; I have spent that time in minutes in the direct care of this critically ill patient, excluding procedure time. ED Disposition Clinical Impression: Upper abdominal pain Disposition: LEFT AWOL/ELOPED Is pt being admited?: No Condition: Stable Referrals: PRIMARY CARE, [Primary Care Provider] - 3-5 Days
[2021-02-04 13:13] LABS: Basophils # (Auto) 0.2 K/mm3 (0.0-0.1); Basophils % (Auto) 2.3 % (0.0-1.8); Eosinophils % (Auto) 0.6 % (0.0-4.3); Hemoglobin 17.8 gm/dl (11.8-15.2); Lymphocytes # (Auto) 1.1 K/mm3 (1.2-5.4); Lymphocytes % (Auto) 13.5 % (13.4-35.0); Mean Corpuscular HGB Conc 34 % (32-34); Mean Corpuscular Volume 87 fl (84-94); Monocytes # (Auto) 0.5 K/mm3 (0.0-0.8); Monocytes % (Auto) 5.5 % (0.0-7.3); Platelet Count 213 K/mm3 (140-440); Red Blood Count 5.99 M/mm3 (3.65-5.03); Red Cell Distribution Width 13.4 % (13.2-15.2)
[2021-02-04 13:23] LABS: Alanine Aminotransferase 19 units/L (7-56); Albumin 4.9 g/dL (3.9-5); BUN/Creatinine Ratio 15; Blood Urea Nitrogen 21 mg/dL (9-20); Calcium 10.5 mg/dL (8.4-10.2); Hemolysis Index 21
[2021-02-04 13:24] LABS: Bilirubin,Direct < 0.2 mg/dL (0-0.2)
--- NOTE | 2021-02-05 08:34 | Electrocardiograph Report ---
[facility] Test Date: 2021-02-04 Test Time: 12:31:08 Pat Name: JESSICA HOWELL Department: Room: Gender: M Web Development Intern: JAYA : 1985 Requested By: NAKIA QUEEN Order Number: [id number] Reading MD: Neil Martin Measurements Intervals [place] Rate: 65 P: 61 IA: 150 QRS: 71 QRSD: 100 T: 50 QT: 386 QTc: 402 Interpretive Statements sr No previous ECG available for comparison Electronically Signed On 02-05-2021 8:33:57 EDT by Neil Mratin
== END 2021-02-04 13:55 | disposition left against medical advice (07) ==
LOC: ED 11:33
DX: R10.10 Upper abdominal pain, unspecified (principal); I10 Essential (primary) hypertension; Z79.899 Other long term (current) drug therapy
CPT/HCPCS: 36415; 80048; 80076; 83690; 84484; 85025; 93005; 99283

== ENCOUNTER 2021-06-02 08:34 | Emergency (ER) | payer SELFPAY ==
[2021-06-02 09:18] VITALS: BP 134/90
--- NOTE | 2021-06-02 09:21 | Emergency Department Report ---
ED Extremity Problem HPI - General Chief complaint: Extremity Injury, Upper Stated complaint: RT ARM PAIN Time Seen by Provider: 06/02/21 09:19 Source: patient Mode of arrival: Ambulatory Limitations: No Limitations - History of Present Illness Initial comments: 35 yo comes in to ER with right arm pain- mid arm. This started 1 week ago p dropping a pallet at work on the arm. Arm is swollen. Neurovasc intact. No other injury Skin intact MD Complaint: extremity pain, extremity swelling -: week(s) Location: right History of Same: No Radiation: none Quality: aching Consistency: constant Improves with: immobilization Associated Symptoms: denies other symptoms - Related Data Previous Rx's Medication Instructions Recorded Last Taken Type Tramadol HCl/Acetaminophen 1 each PO Q6HR PRN #15 tablet 09/29/20 Unknown Rx [Ultracet Tablet] amLODIPine 5 mg PO DAILY #30 tab 09/29/20 Unknown Rx methylPREDNISolone [Medrol 4MG 4 mg PO DAILY #1 tab.ds.pk 09/29/20 Unknown Rx DOSEPAK (21 tabs)] Baclofen 20 mg PO Q8H PRN #30 tablet 02/02/21 Unknown Rx Ibuprofen [Motrin] 800 mg PO Q8HR PRN #30 tablet 02/02/21 Unknown Rx predniSONE [Deltasone] 20 mg PO QDAY #15 tab 02/02/21 Unknown Rx Allergies Allergy/AdvReac Type Severity Reaction Status Date / Time No Known Allergies Allergy Unverified 04/04/20 17:49 ED Review of Systems ROS: Stated complaint: LT ARM INJURY Other details as noted in HPI Comment: All other systems reviewed and negative ED Past Medical Hx - Past Medical History Hx Hypertension: Yes Additional medical history: right arm with knots - Social History Smoking Status: Never Smoker - Medications Home Medications: Home Medications Medication Instructions Recorded Confirmed Last Taken Type Tramadol HCl/Acetaminophen 1 each PO Q6HR PRN #15 tablet 09/29/20 Unknown Rx [Ultracet Tablet] amLODIPine 5 mg PO DAILY #30 tab 09/29/20 Unknown Rx methylPREDNISolone [Medrol 4MG 4 mg PO DAILY #1 tab.ds.pk 09/29/20 Unknown Rx DOSEPAK (21 tabs)] Baclofen 20 mg PO Q8H PRN #30 tablet 02/02/21 Unknown Rx Ibuprofen [Motrin] 800 mg PO Q8HR PRN #30 tablet 02/02/21 Unknown Rx predniSONE [Deltasone] 20 mg PO QDAY #15 tab 02/02/21 Unknown Rx ED Physical Exam - General Limitations: No Limitations General appearance: alert, in no apparent distress - Head Head exam: Present: atraumatic, normocephalic - Eye Eye exam: Present: normal appearance - ENT ENT exam: Present: mucous membranes moist - Neck Neck exam: Present: normal inspection - Respiratory Respiratory exam: Present: normal lung sounds bilaterally. Absent: respiratory distress - Cardiovascular Cardiovascular Exam: Present: regular rate, normal rhythm. Absent: systolic murmur, diastolic murmur, rubs, gallop - GI/Abdominal GI/Abdominal exam: Present: soft, normal bowel sounds - Rectal Rectal exam: Present: deferred - Extremities Exam Extremities exam: Present: normal inspection - Expanded Upper Extremity Exam Right Elbow exam: Present: normal inspection Forearm Wrist exam: Present: swelling Hand Wrist exam: Present: normal inspection Neuro motor exam: Present: wrist extension intact, thumb opposition intact, thumb IP flexion intact, thumb adduction intact, fingers 2-5 abduction intact Vascular: Present: normal capillary refill - Back Exam Back exam: Present: normal inspection - Neurological Exam Neurological exam: Present: alert, oriented X3 - Psychiatric Psychiatric exam: Present: normal affect, normal mood - Skin Skin exam: Present: warm, dry, intact, normal color. Absent: rash ED Course Vital Signs 06/02/21 09:14 Temperature 98.4 F Pulse Rate 79 Respiratory 18 Rate Blood Pressure 134/90 [Right] O2 Sat by Pulse 98 Oximetry ED Medical Decision Making - Radiology Data Radiology results: report reviewed, image reviewed NEG FX - Medical Decision Making Vital Signs 06/02/21 09:14 Temperature 98.4 F Pulse Rate 79 Respiratory 18 Rate Blood Pressure 134/90 [Right] O2 Sat by Pulse 98 Oximetry XR NEG DEEDEE APPLIED NEUROVASC INTACT dc home with dc plan of care. Pt verbalizes understanding of plan of care including diet, activity, med and follow up. - Differential Diagnosis RO FX Critical care attestation.: If time is entered above; I have spent that time in minutes in the direct care of this critically ill patient, excluding procedure time. ED Disposition Clinical Impression: Arm contusion Qualifiers: Encounter type: initial encounter Laterality: right Qualified Code(s): S40.021A - Contusion of right upper arm, initial encounter Disposition: HOME / SELF CARE / HOMELESS Is pt being admited?: No Does the pt Need Aspirin: No Condition: Stable Instructions: Contusion, [id number] Additional Instructions: DEEDEE ICE REST ELEVATE MOTRIN OVER THE COUNTER FOR PAIN FOLLOW UP WITH ORTHO NEXT WEEK IF PAIN PERSISTS REFERRAL BELOW Referrals: GABI CLARK MD [Staff Physician] - 3-5 Days Forms: Work/School Release Form(ED) Time of Disposition: 09:40
[2021-06-02] MEDS ORDERED: IBUPROFEN 800 MG TAB PO ONE (09:47)
--- NOTE | 2021-06-02 09:51 | XRay Report ---
RIGHT FOREARM 2 VIEW(S) INDICATION / CLINICAL INFORMATION: pain r arm sp injury at work COMPARISON: None available. FINDINGS: BONES / JOINT(S): No acute fracture or subluxation. No significant arthritis. SOFT TISSUES: No radiopaque foreign body or soft tissue gas identified. ADDITIONAL FINDINGS: None. Signer Name: Gm Wheatley MD Signed: 06/02/2021 9:47 AM Workstation Name: [facility]
== END 2021-06-02 10:35 | disposition home or self-care (01) ==
LOC: ED 08:34
DX: S40.021A Contusion of right upper arm, initial encounter (principal); I10 Essential (primary) hypertension; Z79.899 Other long term (current) drug therapy; Y92.89 Other specified places as the place of occurrence of the external cause; Y99.8 Other external cause status
CPT/HCPCS: 99283

== ENCOUNTER 2021-06-12 07:59 | Emergency (ER) | payer SELFPAY ==
[2021-06-12 08:17] VITALS: BP 152/92
--- NOTE | 2021-06-12 08:25 | Emergency Department Report ---
ED Upper Extremity Inj HPI - General Chief Complaint: Extremity Injury, Upper Stated Complaint: RT WRIST ARM SWOLLEN Time Seen by Provider: 06/12/21 08:17 Source: patient Mode of arrival: Ambulatory Limitations: No Limitations - History of Present Illness Initial Comments: 35 year old male present to ED with c/o persistent right forearm pain and swelling. Patient reports that he accidentally injured his arm at work about 1 week ago. He states that he was reaching up to grab a pallet, when another pallet on top fell on top of his right forearm/wrist area. He was seen her 06/02/2021 at the time of the injury. He had an x-ray of his right forearm which did not show any acute abnormalities. Patient was encouraged to follow the rice protocol, and he was instructed to take ibuprofen [id number]. Patient states that he has been taking ibuprofen but has not been helping his symptoms. He has tried doing the rest, and ice, and using the compression, but patient states that he had to return to work and has been using his arm and therefore has not been doing much resting of his arm. He has been using the Vitor wrap. He states that he did not follow-up with Ortho no call to set up an appointment due to lack of insurance and inability to afford the visit. He reports just persistent pain and swelling mainly to the distal aspect of the right forearm. He reports no other symptoms at this time. He is right-hand dominant. Complaint: Injury to:: forearm -: week(s) (1) - Related Data Previous Rx's Medication Instructions Recorded Last Taken Type amLODIPine 5 mg PO DAILY #30 tab 09/29/20 Unknown Rx Baclofen 20 mg PO Q8H PRN #30 tablet 02/02/21 Unknown Rx Ketorolac [Toradol] 10 mg PO Q6H PRN #20 tab 06/12/21 Unknown Rx Allergies Allergy/AdvReac Type Severity Reaction Status Date / Time No Known Allergies Allergy Unverified 04/04/20 17:49 ED Review of Systems ROS: Stated complaint: RT WRIST ARM SWOLLEN Other details as noted in HPI Comment: All other systems reviewed and negative Respiratory: denies: cough, shortness of breath, wheezing Cardiovascular: denies: chest pain, palpitations Musculoskeletal: joint swelling, arthralgia Skin: denies: rash, lesions, change in color, change in hair/nails, pruritus Neurological: denies: headache, weakness, numbness, paresthesias, confusion, abnormal gait, vertigo Psychiatric: denies: anxiety, depression, auditory hallucinations, visual hallucinations, homicidal thoughts, suicidal thoughts Hematological/Lymphatic: denies: easy bleeding, easy bruising, swollen glands ED Past Medical Hx - Past Medical History Previous Medical History?: Yes Hx Hypertension: Yes Additional medical history: right arm with knots - Surgical History Past Surgical History?: No - Social History Smoking Status: Never Smoker - Medications Home Medications: Home Medications Medication Instructions Recorded Confirmed Last Taken Type amLODIPine 5 mg PO DAILY #30 tab 09/29/20 Unknown Rx Baclofen 20 mg PO Q8H PRN #30 tablet 02/02/21 Unknown Rx Ketorolac [Toradol] 10 mg PO Q6H PRN #20 tab 06/12/21 Unknown Rx ED Physical Exam - General Limitations: No Limitations General appearance: alert, in no apparent distress - Respiratory Respiratory exam: Present: normal lung sounds bilaterally. Absent: respiratory distress, wheezes, rales, rhonchi - Cardiovascular Cardiovascular Exam: Present: regular rate, normal rhythm, normal heart sounds - Expanded Upper Extremity Exam Right Forearm Wrist exam: Present: tenderness (distal radial aspect of forearm ), swelling (mild swelling distal radial aspect of forearm). Absent: abrasion, laceration, ecchymosis, deformity, crepidus, dislocation, erythema, tenderness over anatomical snuff box, pain with axial thumb loading Hand Wrist exam: Present: normal inspection, full ROM. Absent: tenderness, swelling, abrasion, laceration, ecchymosis, deformity, crepidus, dislocation, erythema, amputation, nail avulsion, subungual hematoma Neuro motor exam: Present: wrist extension intact, thumb opposition intact, thumb IP flexion intact, thumb adduction intact, fingers 2-5 abduction intact Neurosensory exam: Present: radial nerve intact, ulnar nerve intact, median nerve intact Vascular: Present: normal capillary refill, radial pulse (normal ). Absent: vascular compromise - Neurological Exam Neurological exam: Present: alert, oriented X3, CN II-XII intact, normal gait - Psychiatric Psychiatric exam: Present: normal affect, normal mood - Skin Skin exam: Present: intact ED Course Vital Signs 06/12/21 08:16 Temperature 98.7 F Pulse Rate 69 Respiratory 20 Rate Blood Pressure 152/92 [Left] O2 Sat by Pulse 99 Oximetry ED Medical Decision Making - Medical Decision Making 35 year old male present to ED with c/o persistent right forearm pain and swelling. Patient reports that he accidentally injured his arm at work about 1 week ago. He states that he was reaching up to grab a pallet, when another pallet on top fell on top of his right forearm/wrist area. He was seen her 06/02/2021 at the time of the injury. He had an x-ray of his right forearm which did not show any acute abnormalities. Patient was encouraged to follow the rice protocol, and he was instructed to take ibuprofen [id number]. Patient states that he has been taking ibuprofen but has not been helping his symptoms. He has tried doing the rest, and ice, and using the compression, but patient st ates that he had to return to work and has been using his arm and therefore has not been doing much resting of his arm. He has been using the Vitor wrap. He states that he did not follow-up with Ortho no call to set up an appointment due to lack of insurance and inability to afford the visit. He reports just persistent pain and swelling mainly to the distal aspect of the right forearm. He reports no other symptoms at this time. He is right-hand dominant. 0837: Patient's x-ray of his right forearm which was done on 06/02/2021 showed no acute abnormalities. He reports no new injury since he was seen on the second. His exam shows that he has some mild swelling and tenderness about the distal radial aspect of the right forearm. Questionable small hematoma but no apparent signs of cellulitis, no abscess, no compartment syndrome, no open wounds or any other acute abnormalities warranting emergent testing or treatment in the ER. Patient will be placed in a Velcro wrist splint. He was encouraged to follow-up with Ortho. He will be given a work note for the next couple days so he can rest his arm and given Toradol for pain. Patient expressed understanding of instructions and agree with plan. Patient stable at time of discharge. Critical care attestation.: If time is entered above; I have spent that time in minutes in the direct care of this critically ill patient, excluding procedure time. ED Disposition Clinical Impression: Forearm contusion Disposition: HOME / SELF CARE / HOMELESS Is pt being admited?: No Does the pt Need Aspirin: No Condition: Stable Instructions: How to Use Cold Therapy, [id number], Contusion, [id number] Additional Instructions: Use the velcro wrist splint as instructed. Take the toradol for pain. Recommend limited use of arm on your off days. You can wear splint at work. I do recommend following up with Ortho for further eval since symptoms persist. Call monday to set up an appointment. Return to ED if worse or changes. Prescriptions: Ketorolac [Toradol] 10 mg PO Q6H PRN #20 tab PRN Reason: Pain Referrals: GABI CLARK MD [Staff Physician] - 3-5 Days Forms: Work/School Release Form(ED) Time of Disposition: 08:28
== END 2021-06-12 08:55 | disposition home or self-care (01) ==
LOC: ED 07:59
DX: S50.11XA Contusion of right forearm, initial encounter (principal); W18.39XA Other fall on same level, initial encounter; Y93.89 Activity, other specified; Y92.89 Other specified places as the place of occurrence of the external cause; Y99.8 Other external cause status
CPT/HCPCS: 99282; 99283